=== PATIENT | female | born 1955 | race Caucasian/White ===

== ENCOUNTER 2018-05-22 06:52 | Day surgery (SDC) | payer MEDICARE, BC ==
[2018-05-22] MEDS ORDERED: Succinylcholine 200 MG/10 ML MDV ONE (07:07)
[2018-05-22] MEDS ORDERED: Neostigmine Methylsulfate 1 MG/ML 5 ML Syringe ONE (07:07)
[2018-05-22] MEDS ORDERED: Dexamethasone 4 MG/ML SDV ONE (07:07)
[2018-05-22] MEDS ORDERED: Rocuronium 50 MG/5 ML Vial ONE (07:07)
[2018-05-22] MEDS ORDERED: fentaNYL 250 MCG/5 ML SDV ONE (07:07)
[2018-05-22] MEDS ORDERED: Ondansetron 4 MG/2 ML SDV ONE (07:07)
[2018-05-22] MEDS ORDERED: Propofol 200 MG/20 ML SDV ONE (07:07)
[2018-05-22] MEDS ORDERED: Glycopyrrolate 0.2 MG/ML 5 ML MDV ONE (07:07)
[2018-05-22] MEDS: Acetaminophen 500 MG Tab PO ONE (07:08)
[2018-05-22] MEDS: Dextrose 5%-Lactated Ringers 1,000 ML IV SCH (07:46)
[2018-05-22] MEDS ORDERED: ceFAZolin 2 GM in Sodium Chloride 0.9% 50 ML IV ONE (08:45)
[2018-05-22] MEDS: ceFAZolin 2 GM in Sodium Chloride 0.9% 50 ML IV ONE (08:48)
[2018-05-22] MEDS: Bupivacaine 0.5%/EPINEPHrine 1:200,000 50 ML MDV ONE (09:40)
[2018-05-22] MEDS: Linezolid 200 MG/100 ML Bag IRR ONE (09:42)
[2018-05-22] MEDS ORDERED: Ketorolac 60 MG/2 ML SDV ONE (09:44)
[2018-05-22] MEDS: Acetaminophen/HYDROcodone 325-5 MG Tab PO ONE (11:28)
--- NOTE | 2018-05-31 15:49 | OR ---
DATE OF PROCEDURE: 05/22/2018 PREOPERATIVE DIAGNOSIS: Incarcerated epigastric hernia. POSTOPERATIVE DIAGNOSIS: Incarcerated epigastric hernia. PROCEDURE PERFORMED: Open repair of incarcerated epigastric hernia with mesh (42133). ANESTHESIA: General. INDICATION FOR PROCEDURE: A 63-year-old female presenting with an incarcerated epigastric hernia, it was located roughly 3 fingerbreadths superior to the umbilicus, does not appear to have concurrent umbilical hernia. Plan is to proceed with a limited incision over the hernia following with repair of this most likely with addition of the mesh plug in the subfascial location. Potential risks including bleeding, infection, injury to underlying viscera, possibility of the hernia recurring were all reviewed, and the patient wishes to proceed. DETAILS OF PROCEDURE: The patient was taken to the operating room and placed in a supine position. After general endotracheal anesthesia was induced, the abdomen was prepped and draped. The area of the herniation had been marked out preoperatively in the abdominal wall and was once again confirmed by palpation. A transversely oriented incision was then made and carried down through the skin and subcutaneous tissue and a large amount of preperitoneal fat was then encountered. Eventually, this came out to be roughly the size of a ping-pong ball in terms of the overall amount of fat involving the area of incarceration. Once this was freed up through the fascial defect which measured around 9 or 10 mm, the base of the preperitoneal fat was clamped and divided and suture ligated with a 3-0 Vicryl stitch. A large mesh plug was placed into the defect and some of the internal wings of the mesh were removed to decrease the overall bulk of the mesh, and then this was fixed medially, laterally, superiorly, and inferiorly to the underside of the fascia with horizontal mattress sutures of 0 Vicryl stitch. Palpation of the fascia underneath the defect which was large enough to allow the surgeon's finger into that plane revealed no additional areas of hernia or weakness either at the umbilicus or along the nearby midline fascia. After placement of the mesh, the transverse closure of the fascia was accomplished. The area was then anesthetized with 0.5% Marcaine and the subcutaneous tissue was approximated with 2 layers of 3-0 Vicryl stitch deep and then the skin with a 5-0 Vicryl subcuticular stitch. Steri-Strips were applied. The patient was taken to the recovery room in satisfactory condition with no evident complications. Guy Lawton MD /[id number]
== END 2018-05-22 12:30 | disposition home or self-care (01) ==
LOC: JP.SDS 06:52
PROVIDERS: ATTEND Surgery
DX: K43.6 Other and unspecified ventral hernia with obstruction, without gangrene (principal); E78.5 Hyperlipidemia, unspecified; J30.2 Other seasonal allergic rhinitis
CPT/HCPCS: 88302; A9270-GY; C1781; J0330; J0690; J1100; J1885; J2020; J2405; J2704; J2710; J3010; J3490; J7042; J7050

== ENCOUNTER 2020-04-04 08:24 | Emergency (ER) | payer MEDICARE, BC ==
[2020-04-04] MEDS ORDERED: Ketorolac 30 MG/ML SDV IM ONE (09:00)
--- NOTE | 2020-04-04 09:06 | EDM.PDOC ---
ED HPI GENERAL MEDICAL PROBLEM - General Chief Complaint: Lower Extremity Injury/Pain Stated Complaint: RIGHT LEG PAIN Time Seen by Provider: 04/04/20 08:55 Source of Information: Reports: Patient, Family, RN Notes Reviewed History Limitations: Reports: No Limitations - History of Present Illness INITIAL COMMENTS - FREE TEXT/NARRATIVE: 65-year-old female presents emergency department a complaint of right knee pain, she injured herself yesterday while moving around the pontoon she had a twisting injury on the right knee which then produced significant pain unable for her to bear weight. Right Knee Pain Score (Numeric/FACES): 7 - Related Data Allergies Allergy/AdvReac Type Severity Reaction Status Date / Time No Known Allergies Allergy Verified 04/04/20 08:44 Home Meds: Home Meds Calcium Carbonate/Vitamin D3 [Calcium Carbonate/Vitamin D 600 MG-200 Unit] 600 mg PO DAILY 05/18/18 [History] Ibuprofen [Advil] 800 mg PO Q4H PRN 05/18/18 [History] Multivitamin [One Daily] 1 each PO DAILY 05/18/18 [History] Cetirizine HCl [Aller-Lavinia] 1 tab PO DAILY 04/04/20 [History] Potassium Gluconate [Potassium] 99 mg PO DAILY 04/04/20 [History] Past Medical History HEENT History: Reports: Allergic Rhinitis, Cataract Gastrointestinal History: Reports: Diverticulosis, Other (See Below) Other Gastrointestinal History: epigastric hernia [employer]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 Hematologic History: Reports: Blood Transfusion(s) - Infectious Disease History Infectious Disease History: Reports: Chicken Pox, Measles, Mononucleosis, Mumps - Past Surgical History Head Surgeries/Procedures: Reports: None HEENT Surgical History: Reports: Cataract Surgery Cardiovascular Surgical History: Reports: None Respiratory Surgical History: Reports: None GI Surgical History: Reports: Colonoscopy, Other (See Below) Other GI Surgeries/Procedures: epigastric hernia 2018 Female Surgical History: Reports: Hysterectomy, Salpingo-Oophorectomy Endocrine Surgical History: Reports: None Neurological Surgical History: Reports: None Musculoskeletal Surgical History: Reports: None Oncologic Surgical History: Reports: None Dermatological Surgical History: Reports: None Social & Family History - Family History Family Medical History: Noncontributory - Tobacco Use Smoking Status *Q: Never Smoker Second Hand Smoke Exposure: No - Caffeine Use Caffeine Use: Reports: Coffee, Soda - Alcohol Use Days Per Week of Alcohol Use: 7 Number of Drinks Per Day: 3 Total Drinks Per Week: 21 Date of Last Drink: 04/03/20 - Recreational Drug Use Recreational Drug Use: No Review of Systems - Review of Systems Review Of Systems: See Below Constitutional: Reports: No Symptoms Musculoskeletal: Reports: Joint Pain (Right knee pain) Skin: Reports: No Symptoms Neurological: Reports: No Symptoms ED EXAM, GENERAL - Physical Exam Exam: See Below Free Text/Narrative:: Examination the right knee I do not appreciate any erythema there is no edema there is no specific point tenderness but she will not tolerate an exam any flexion extension any valgus or valgus maneuvers. Pedal pulses +2 there is no tenderness at the ankle no tenderness at the hip Exam Limited By: No Limitations General Appearance: Alert, WD/WN, No Apparent Distress Course - Vital Signs Last Recorded V/S: Last Vital Signs Temp 97.6 F 04/04/20 08:48 Pulse 74 04/04/20 08:48 Resp 18 04/04/20 08:48 BP 173/96 H 04/04/20 08:48 Pulse Ox 97 04/04/20 08:48 - Orders/Labs/Meds Orders: Active Orders 24 hr Category Date Time Status Notify Provider Consults [RC] ASDIRECTED Care 04/04/20 09:01 Active Consult to Orthopedic Clinic [CONS] Routine Cons 04/04/20 09:01 Active Consult to Physician [CONS] Routine Cons 04/04/20 09:01 Ordered Knee 1V or 2V Rt [CR] Stat Exams 04/04/20 08:59 Ordered DME for Discharge [COMM] Urgent Oth 04/04/20 09:00 Ordered Meds: Medications Discontinued Medications Generic Name Dose Route Start Last Admin Trade Name Keith PRN Reason Stop Dose Admin Ketorolac Tromethamine 30 mg 04/04/20 09:00 04/04/20 09:05 Toradol IM 04/04/20 09:01 30 mg ONETIME ONE Administration Departure - Departure Time of Disposition: 09:24 Disposition: Home, Self-Care 01 Condition: Fair Clinical Impression: Right knee pain Qualifiers: Chronicity: acute Qualified Code(s): M25.561 - Pain in right knee - Discharge Information Instructions: Acute Knee Pain, Adult Referrals: Moriah Martinez PA [Primary Care Provider] - Forms: ED Department Discharge Additional Instructions: Use ibuprofen for baseline pain control, use hydrocodone for breakthrough pain, the orthopedics clinic will call you on Monday for an appointment time, call return to the emergency department worsening of symptoms Sepsis Event Note (ED) - Evaluation Sepsis Screening Result: No Definite Risk - Focused Exam Vital Signs: Vital Signs Temp Pulse Resp BP Pulse Ox 04/04/20 08:48 97.6 F 74 18 173/96 H 97 04/04/20 08:42 97.6 F 74 18 173/96 H 97 - My Orders Last 24 Hours: My Active Orders 04/04/20 08:59 Knee 1V or 2V Rt [CR] Stat 04/04/20 09:00 DME for Discharge [COMM] Urgent 04/04/20 09:01 Notify Provider Consults [RC] ASDIRECTED Consult to Orthopedic Clinic [CONS] Routine Consult to Physician [CONS] Routine - Assessment/Plan Last 24 Hours: My Active Orders 04/04/20 08:59 Knee 1V or 2V Rt [CR] Stat 04/04/20 09:00 DME for Discharge [COMM] Urgent 04/04/20 09:01 Notify Provider Consults [RC] ASDIRECTED Consult to Orthopedic Clinic [CONS] Routine Consult to Physician [CONS] Routine Plan: Assessment Acuity = acute Site and laterality = right knee pain Etiology = suspicious for ligament injury Manifestations = none Location of injury = Home Lab values = x-ray of the knee I did review films myself I cannot appreciate any acute process, the official read from radiology is pending Plan She is given an Demian wrap and crutches consultation set up with orthopedics Dr. Murphy for next week prescription written for hydrocodone 5/325 1 tab p.o. 3 times daily PRN total #10 This note was dictated using [employer] voice recognition software please call with any questions on syntax or grammar.
--- NOTE | 2020-04-06 08:58 | CR ---
Knee 1V or 2V Rt CLINICAL HISTORY: Pain, injury FINDINGS: No acute fracture or dislocation is noted. There are no osseous lesions. There is mild prominence of the intercondylar eminence. There is patellar spurring. Impression: Mild osteoarthritic change No fracture
== END 2020-04-04 09:48 | disposition home or self-care (01) ==
LOC: JP.ED 08:24
DX: M25.561 Pain in right knee (principal)
CPT/HCPCS: 73560; 96372; 99283; J1885

== ENCOUNTER 2023-08-14 09:41 | Day surgery (SDC) | payer MEDICARE, BC ==
[~2023-08-14 09:41] MED LIST: Bacitracin Oint 1 GM U/D Packet ONE; Bupivacaine 0.5% 50 ML MDV ONE; Lidocaine 1% with EPINEPHrine 1:100,000 50 ML MDV ONE
[2023-08-14] MEDS ORDERED: ceFAZolin 2 GM in Premix Bag 1 BAG IV ONE (10:30)
[2023-08-14] MEDS ORDERED: Lactated Ringers 1,000 ML IV SCH (10:30)
[2023-08-14] MEDS ORDERED: Acetaminophen 500 MG Tab PO ONE (10:30)
[2023-08-14] MEDS ORDERED: Midazolam 1 MG/ML 2 ML SDV ONE (10:53)
[2023-08-14] MEDS ORDERED: fentaNYL 100 MCG/2 ML SDV ONE (10:53)
[2023-08-14] MEDS ORDERED: Propofol 200 MG/20 ML SDV ONE (10:53)
== END 2023-08-14 13:40 | disposition home or self-care (01) ==
LOC: JP.SDS 09:41
PROVIDERS: ATTEND Student in an Organized Health Care Education/Training Program
DX: L57.0 Actinic keratosis (principal); K57.30 Diverticulosis of large intestine without perforation or abscess without bleeding; E78.00 Pure hypercholesterolemia, unspecified; I10 Essential (primary) hypertension; Z79.899 Other long term (current) drug therapy; Z98.890 Other specified postprocedural states; Z91.048 Other nonmedicinal substance allergy status
CPT/HCPCS: A9270-GY; J0690; J2250; J2704; J3010; J3490; J7120